=== PATIENT | male | born 1955 | race Hispanic/Latino ===

== ENCOUNTER 2019-03-11 07:35 | Inpatient (IN) | payer MEDICARE ==
[~2019-03-11] VITALS: Ht 160 cm; Wt 59.7 kg
[2019-03-11 08:06] LABS: CARBON DIOXIDE 21 mmol/L (21-32); CHLORIDE 95 mmol/L (101-111); CREATININE 0.7 mg/dL (0.5-1.5); GLOMERULAR FILTR. RATE CALC 120 mL/min (>60); GLUCOSE,RANDOM 93 mg/dL (70-105); POTASSIUM 3.9 mmol/L (3.5-5.1); SODIUM SERUM 130 mmol/L (136-145); UREA NITROGEN, BLOOD 5 mg/dL (7-18)
[2019-03-11 08:10] LABS: INR 1.02 (0.85-1.15); PARTIAL THROMBOPLASTIN TIME 27.5 SEC (26.3-35.5); PROTHROMBIN TIME 10.7 SEC (9.6-11.6)
[2019-03-11 08:11] LABS: APPEARANCE,URINE Clear (CLEAR); BILIRUBIN,URINE Negative (NEGATIVE); COLOR,URINE Yellow (YELLOW); GLUCOSE, URINE (UA) Negative (NEGATIVE); KETONES,URINE Negative (NEGATIVE); LEUKOCYTE ESTERASE ,URINE Negative (NEGATIVE); NITRATE,URINE Negative (NEGATIVE); OCCULT BLOOD,URINE Negative (NEGATIVE); PROTEIN,URINE Negative (NEGATIVE); UROBILINOGEN,URINE 0.2 mg/dL (0.2-1.0)
[2019-03-11 08:17] LABS: ALANINE AMINOTRANSFERASE 22 U/L (12-78); ALBUMIN 4.2 g/dL (3.5-5.0); ASPARTATE AMINOTRANSFERASE 27 U/L (10-37); BILIRUBIN,TOTAL 0.4 mg/dL (0.2-1.0); CREATINE KINASE, TOTAL 113 U/L (21-232); MYOGLOBIN 32 ng/mL (10-92); TOTAL PROTEIN, SERUM 9.1 g/dL (6.0-8.3); TROPONIN I < 0.04 ng/mL (0.00-0.06)
[2019-03-11] MEDS ORDERED: AZITHROMYCIN 250 MG TABLET PO ONE (08:19)
[2019-03-11] MEDS ORDERED: CEFTRIAXONE SODIUM 1 GM ONE (08:19)
[2019-03-11] MEDS ORDERED: SODIUM CHLORIDE 0.9% 1000ML 2,000 ML IV ONE (08:20)
[2019-03-11 08:27] LABS: BASOPHILS % (AUTO) 0.6 % (0.0-5.0); EOSINOPHILS % (AUTO) 9.5 % (0.0-8.0); HEMATOCRIT 45.3 % (42-54); LYMPHOCYTES % (AUTO) 26.1 % (21.0-51.0); MEAN CORPUSCULAR HEMOGLOBIN 33.6 pg (27.0-33.0); MEAN CORPUSCULAR HGB CONC 34.6 g/dL (32.0-36.0); MEAN CORPUSCULAR VOLUME 97.1 fL (79-99); NEUTROPHILS % (AUTO) 56.8 % (40.0-77.0); NUCLEATED RED BLOOD CELLS 0.1 % (0.0-0.19); PLATELET COUNT (AUTO) 148 K/uL (130-400); RED BLOOD CELL COUNT(AUTO) 4.66 MIL/uL (4.50-6.20); WHITE BLOOD COUNT (AUTO) 7.5 K/uL (4.8-10.8)
[2019-03-11] MEDS ORDERED: METHYLPREDNISOLONE SOD SUCC 125MG/2ML VIAL ONE (09:07)
[2019-03-11] MEDS ORDERED: IPRATROPIUM/ALBUTEROL SULFATE 3 ML SOLUTION IH ONE (09:11)
[2019-03-11] MEDS ORDERED: FAMOTIDINE 20MG TAB 20 MG TAB ONE (10:21)
[2019-03-11] MEDS ORDERED: ENOXAPARIN SODIUM 40 MG/0.4 ML SYRINGE SQ ONE (10:22)
[2019-03-11] MEDS ORDERED: SODIUM CHLORIDE 0.9% 10 ML VIAL IVP PRN (15:30)
[2019-03-11] MEDS: PHARMACY COMMUNICATION MISC SCH ×2 (15:30→21:00)
[2019-03-11 16:00] VITALS: BP 158/97
[2019-03-11] MEDS ORDERED: CEFTRIAXONE SODIUM 1 GM IVP SCH (17:45)
[2019-03-11] MEDS: CEFTRIAXONE SODIUM 1 GM IVP SCH (17:45)
[2019-03-11] MEDS ORDERED: AEC81 PO (17:56)
[2019-03-11] MEDS ORDERED: LOSA50TA64 PO (17:56)
[2019-03-11] MEDS ORDERED: ATOR10 PO (17:59)
[2019-03-11] MEDS ORDERED: ERGO50CA PO (17:59)
[2019-03-11] MEDS ORDERED: LACT10SO PO (17:59)
[2019-03-11] MEDS ORDERED: IPRATROPIUM/ALBUTEROL SULFATE 3 ML SOLUTION IH SCH (18:00)
[2019-03-11] MEDS: IPRATROPIUM/ALBUTEROL SULFATE 3 ML SOLUTION IH SCH ×2 (18:40→23:28)
[2019-03-11] MEDS ORDERED: SODIUM CHLORIDE 3% FOR INHALATION 4 ML/AMP VIAL.NEB IH ONE (19:04)
[2019-03-11 20:08] VITALS: BP 142/73
[2019-03-11] MEDS: FAMOTIDINE 20MG TAB 20 MG TAB PO SCH (20:51)
[2019-03-11] MEDS ORDERED: FAMOTIDINE 20MG TAB 20 MG TAB PO SCH (21:00)
[2019-03-12 00:06] VITALS: BP 146/77
[2019-03-12] MEDS ORDERED: METHYLPREDNISOLONE SOD SUCC 125MG/2ML VIAL IVP SCH (02:00)
[2019-03-12 04:06] VITALS: BP 150/75
[2019-03-12 05:25] LABS: HEMATOCRIT 41.3 % (42-54); MEAN CORPUSCULAR HEMOGLOBIN 33.2 pg (27.0-33.0); MEAN CORPUSCULAR HGB CONC 34.5 g/dL (32.0-36.0); MEAN CORPUSCULAR VOLUME 96.3 fL (79-99); NUCLEATED RED BLOOD CELLS 0.1 % (0.0-0.19); PLATELET COUNT (AUTO) 176 K/uL (130-400); RED BLOOD CELL COUNT(AUTO) 4.29 MIL/uL (4.50-6.20); RED CELL DISTRIBUTION WIDTH 12.5 % (11.0-15.5); WHITE BLOOD COUNT (AUTO) 4.9 K/uL (4.8-10.8)
[2019-03-12 05:30] LABS: LYMPHOCYTES % (MANUAL) 16 % (22-44); MAN.DIFF COMMENT-IMPRESSION MANUAL DIFFERENTIAL; MONOCYTES % (MANUAL) 4 % (2-9); PLATELET MORPHOLOGY COMMENT ADEQUATE; SEGMENTED NEUTROPHILS % 80 % (40-70)
[2019-03-12 05:38] LABS: CREATININE 0.9 mg/dL (0.5-1.5); POTASSIUM 3.9 mmol/L (3.5-5.1)
[2019-03-12] MEDS: IPRATROPIUM/ALBUTEROL SULFATE 3 ML SOLUTION IH SCH ×5 (06:45→21:55)
[2019-03-12] MEDS ORDERED: LACTULOSE 20 GM/30 ML UDCUP PO PRN (07:45)
[2019-03-12 08:00] VITALS: BP 145/83
[2019-03-12] MEDS: CEFTRIAXONE SODIUM 1 GM IVP SCH (08:35)
[2019-03-12] MEDS: METHYLPREDNISOLONE SOD SUCC 40MG/ML 1ML IVP SCH ×3 (08:35→18:14)
[2019-03-12] MEDS: AZITHROMYCIN 500MG+NS 250ML 250 ML IV SCH (08:35)
[2019-03-12] MEDS: FAMOTIDINE 20MG TAB 20 MG TAB PO SCH ×2 (08:36→20:11)
[2019-03-12] MEDS: LOSARTAN 50 MG TABLET PO SCH (08:36)
[2019-03-12] MEDS: ENOXAPARIN SODIUM 40 MG/0.4 ML SYRINGE SQ SCH (08:36)
[2019-03-12] MEDS: ASPIRIN 81 MG EC TAB PO SCH (08:36)
[2019-03-12] MEDS ORDERED: ENOXAPARIN SODIUM 40 MG/0.4 ML SYRINGE SQ SCH (09:00)
[2019-03-12] MEDS ORDERED: ERGOCALCIFEROL (VITAMIN D2) 50,000 UNIT CAPSULE PO SCH (09:00)
[2019-03-12] MEDS: PHARMACY COMMUNICATION MISC SCH ×2 (09:00→14:00)
[2019-03-12] MEDS ORDERED: AZITHROMYCIN 250 MG TABLET PO SCH ×2 (09:00)
[2019-03-12 12:00] VITALS: BP 129/69
--- NOTE | 2019-03-12 13:51 | NUR ---
cm note met with patient and states resides at home with spouse, ambulates per self, but does use cane as needed. has a nebulizer. pt also has a walker but not using at present. provider assists 4hrs daily for adls. dc plan is back home at time of dc. Addendum: 03/12/19 at 1355 by ELLY BLAKE CM Amended: Links added.
[2019-03-12] MEDS ORDERED: LORAZEPAM 2 MG/ML 1 ML VIAL IVP PRN (15:00)
[2019-03-12 16:00] VITALS: BP 126/65
[2019-03-12] MEDS: ATORVASTATIN CALCIUM 10 MG TABLET PO SCH (20:11)
[2019-03-12 20:28] VITALS: BP 121/67
[2019-03-13] VITALS (7 sets, daily range): BP systolic 133–160; BP diastolic 68–86
[2019-03-13] MEDS: IPRATROPIUM/ALBUTEROL SULFATE 3 ML SOLUTION IH SCH ×6 (01:11→22:01)
[2019-03-13] MEDS: METHYLPREDNISOLONE SOD SUCC 40MG/ML 1ML IVP SCH ×4 (02:53→22:04)
[2019-03-13 05:05] LABS: BASOPHILS % (AUTO) 0.1 % (0.0-5.0); EOSINOPHILS % (AUTO) 0.1 % (0.0-8.0); HEMATOCRIT 39.5 % (42-54); LYMPHOCYTES % (AUTO) 7.4 % (21.0-51.0); MEAN CORPUSCULAR HEMOGLOBIN 33.6 pg (27.0-33.0); MEAN CORPUSCULAR HGB CONC 34.7 g/dL (32.0-36.0); MONOCYTES % (AUTO) 4.5 % (3.0-13.0); NEUTROPHILS % (AUTO) 87.9 % (40.0-77.0); PLATELET COUNT (AUTO) 166 K/uL (130-400); RED BLOOD CELL COUNT(AUTO) 4.08 MIL/uL (4.50-6.20); RED CELL DISTRIBUTION WIDTH 12.9 % (11.0-15.5); WHITE BLOOD COUNT (AUTO) 9.3 K/uL (4.8-10.8)
[2019-03-13 05:18] LABS: CREATININE 0.8 mg/dL (0.5-1.5); POTASSIUM 3.8 mmol/L (3.5-5.1)
[2019-03-13] MEDS: ENOXAPARIN SODIUM 40 MG/0.4 ML SYRINGE SQ SCH (09:00)
[2019-03-13] MEDS: FAMOTIDINE 20MG TAB 20 MG TAB PO SCH ×2 (09:55→21:19)
[2019-03-13] MEDS: AZITHROMYCIN 500MG+NS 250ML 250 ML IV SCH (09:55)
[2019-03-13] MEDS: LOSARTAN 50 MG TABLET PO SCH (09:56)
[2019-03-13] MEDS: ASPIRIN 81 MG EC TAB PO SCH (09:56)
[2019-03-13] MEDS: CEFTRIAXONE SODIUM 1 GM IVP SCH (09:57)
[2019-03-13] MEDS ORDERED: CHLORDIAZEPOXIDE HCL 25 MG CAP PO SCH (21:00)
[2019-03-13] MEDS: ATORVASTATIN CALCIUM 10 MG TABLET PO SCH (21:20)
--- NOTE | 2019-03-13 21:20 | NUR ---
MEDS SHIFT ASSESSMENT DONE, PLEASE REFER TO CHART. DUE MEDS ADMINISTERED, TOLERATED WELL. KEPT RESTED AND COMFORTABLE IN BED. CALL LIGHT WITHIN REACH. CALLED PHARMACY, SPOKE WITH YURY, ASKED ABOUT AVAILABLE LIBRIUM DOSES MD ORDERED LESS THAT WHAT IS AVAILABLE BUT IN CAPSULE. RASHEEDA EXPANSION ENVELOPE MAKER HAND LEAN MANUFACTURING LEADER FOR HOSPITALIST, PAGED VIA ANSWERING SERVICE TO CLARIFY LIBRIUM DOSE. RASHEEDA CALLED BACK AND REFERRED MED. EXPANSION ENVELOPE MAKER HAND STATED WILL ADD MORE ORDERS BUT WILL NEED TO KEEP MD ORDER IS. CALLED PHARMACIST AGAIN AND NEW ORDER PLACED FOR PHARMACY TO ENTER. PLEASE REFER TO CPOE FOR NEW MED ORDERS. Addendum: 03/14/19 at 0040 by LASHELL MYERS RN RN Amended: Links added.
--- NOTE | 2019-03-13 21:33 | NUR ---
MEDS PT ALREADY ATE A SANDWICH AFTER HE CAME BACK FROM CT SCAN. DUE MEDS ADMINISTERED, TOLERATED WELL. KEPT RESTED AND COMFORTABLE IN BED. CALL LIGHT WITHIN REACH. WILL MONITOR PT. Addendum: 03/14/19 at 0236 by LASHELL MYERS RN RN ERROR ENTRY
[2019-03-13] MEDS ORDERED: CHLORDIAZEPOXIDE HCL 25 MG CAP PO PRN ×2 (21:45)
[2019-03-13] MEDS ORDERED: PHARMACY COMMUNICATION MISC PRN (21:45)
[2019-03-13] MEDS ORDERED: LORAZEPAM 2 MG/ML 1 ML VIAL IVP PRN ×2 (21:45)
[2019-03-13] MEDS ORDERED: PHARMACY COMMUNICATION MISC SCH (22:00)
[2019-03-13] MEDS: CHLORDIAZEPOXIDE HCL 5 MG CAPSULE PO SCH (22:04)
--- NOTE | 2019-03-13 22:05 | NUR ---
MEDS PT ABLE TO AMBULATE TO THE BATHROOM AND BACK TO BED BY HIMSELF THOUGH DRAGGING HIS RT LEG. NEW MED ORDERED FOR LIBRIUM ADMINISTERED. RT WAS IN TO DO BREATHING TREATMENT AND REMINDED ABOUT WEANING PT OFF O2.
[2019-03-14] MEDS: IPRATROPIUM/ALBUTEROL SULFATE 3 ML SOLUTION IH SCH ×6 (01:54→21:55)
--- NOTE | 2019-03-14 02:00 | NUR ---
WEANED RT INFORMS DRIVING INSTRUCTOR THAT PT WAS ALREADY WEANED OFF FROM O2. O2 SAT =97% ON RA. NO DISTRESS NOTED AT THIS TIME.
[2019-03-14] MEDS: METHYLPREDNISOLONE SOD SUCC 40MG/ML 1ML IVP SCH ×4 (03:02→20:18)
[2019-03-14 03:42] VITALS: BP 143/79
[2019-03-14 05:54] LABS: BASOPHILS % (AUTO) 0.1 % (0.0-5.0); HEMATOCRIT 41.8 % (42-54); LYMPHOCYTES % (AUTO) 9.2 % (21.0-51.0); MEAN CORPUSCULAR HGB CONC 33.9 g/dL (32.0-36.0); MEAN CORPUSCULAR VOLUME 97.4 fL (79-99); MONOCYTES % (AUTO) 3.2 % (3.0-13.0); NEUTROPHILS % (AUTO) 87.5 % (40.0-77.0); PLATELET COUNT (AUTO) 184 K/uL (130-400); RED CELL DISTRIBUTION WIDTH 12.9 % (11.0-15.5); WHITE BLOOD COUNT (AUTO) 9.7 K/uL (4.8-10.8)
[2019-03-14 06:06] LABS: CREATININE 0.9 mg/dL (0.5-1.5); MAGNESIUM 2.3 mg/dL (1.80-2.40); POTASSIUM 3.8 mmol/L (3.5-5.1)
[2019-03-14 08:00] VITALS: BP 141/79
[2019-03-14] MEDS: CHLORDIAZEPOXIDE HCL 5 MG CAPSULE PO SCH ×3 (09:53→20:18)
[2019-03-14] MEDS: LOSARTAN 50 MG TABLET PO SCH (09:54)
[2019-03-14] MEDS: AZITHROMYCIN 500MG+NS 250ML 250 ML IV SCH (09:54)
[2019-03-14] MEDS: CEFTRIAXONE SODIUM 1 GM IVP SCH (09:54)
[2019-03-14] MEDS: FAMOTIDINE 20MG TAB 20 MG TAB PO SCH ×2 (09:54→20:18)
[2019-03-14] MEDS: ASPIRIN 81 MG EC TAB PO SCH (09:54)
[2019-03-14] MEDS: ENOXAPARIN SODIUM 40 MG/0.4 ML SYRINGE SQ SCH (09:54)
[2019-03-14 10:46] VITALS: BP 134/68
[2019-03-14 15:58] VITALS: BP 136/66
[2019-03-14 19:44] VITALS: BP 143/80
[2019-03-14] MEDS: ATORVASTATIN CALCIUM 10 MG TABLET PO SCH (20:18)
--- NOTE | 2019-03-14 20:18 | NUR ---
MEDS SHIFT ASSESSMENT DONE, PLEASE REFER TO CHART. DUE MEDS ADMINISTERED, TOLERATED WELL. PT'S PIV NOTED TO BE LEAKING, DISCONTINUED SITE WITH CATHETER INTACT. KEPT RESTED AND COMFORTABLE. CALL LIGHT WITHIN REACH. Addendum: 03/14/19 at 2338 by LASHELL MYERS RN RN Amended: Links added.
--- NOTE | 2019-03-14 21:45 | NUR ---
PIV PCP INFORMS MACHINE SHOP SPECIALIST THAT PT REFUSED TO SHOWER AND CLAIMS THAT HE IS COLD. PIV RE-INSERTED, G20 TO RT FOREARM.PT TOLERATED RE-INSERTION WELL. MACHINE SHOP SPECIALIST OFFERED PT A SHOWER TONIGHT OR IN THE AM BUT PT STILL REFUSED. Addendum: 03/14/19 at 2348 by LASHELL MYERS RN RN Amended: Links added.
[2019-03-14 23:40] VITALS: BP 144/88
[2019-03-15] MEDS: IPRATROPIUM/ALBUTEROL SULFATE 3 ML SOLUTION IH SCH ×4 (01:32→14:40)
[2019-03-15] MEDS: METHYLPREDNISOLONE SOD SUCC 40MG/ML 1ML IVP SCH ×2 (01:58→09:04)
--- NOTE | 2019-03-15 01:58 | NUR ---
MEDS PT FAIRLY ASLEEP WITH RESPIRATIONS EVEN AND UNLABORED. NO DISTRESS NOTED. DUE MEDS ADMINISTERED, TOLERATED WELL. KEPT RESTED AND UNDISTURBED. WILL MONITOR PT.
[2019-03-15 04:00] VITALS: BP 148/84
--- NOTE | 2019-03-15 06:00 | NUR ---
ROUNDS PT IS ASKING WHEN HIS DISCHARGE PAPERS WILL BE GIVEN HIM. EXPLAINED THAT MD NEED TO MAKE ROUNDS AND GIVE FINAL ORDERS FOR D/C. PT VERBALIZES UNDERSTANDING.
[2019-03-15 08:00] VITALS: BP 178/95
[2019-03-15] MEDS: CHLORDIAZEPOXIDE HCL 5 MG CAPSULE PO SCH (09:00)
[2019-03-15] MEDS: AZITHROMYCIN 500MG+NS 250ML 250 ML IV SCH (09:03)
[2019-03-15] MEDS: FAMOTIDINE 20MG TAB 20 MG TAB PO SCH (09:04)
[2019-03-15] MEDS: CEFTRIAXONE SODIUM 1 GM IVP SCH (09:04)
[2019-03-15] MEDS: LOSARTAN 50 MG TABLET PO SCH (09:04)
[2019-03-15] MEDS: ASPIRIN 81 MG EC TAB PO SCH (09:04)
[2019-03-15] MEDS: ENOXAPARIN SODIUM 40 MG/0.4 ML SYRINGE SQ SCH (09:04)
[2019-03-15 11:51] VITALS: BP 152/90
[2019-03-15] MEDS ORDERED: PRED10TA3 PO (13:42)
[2019-03-15] MEDS ORDERED: IPRA3AMP24 IH (13:42)
[2019-03-15] MEDS ORDERED: AMOX-429 PO (13:42)
== END 2019-03-15 15:23 | disposition home or self-care (01) | DRG 871 ==
LOC: EDH 07:35 → EDHIP 09:44 → 4CH 16:28
PROVIDERS: ADMIT Family Medicine; ATTEND Family Medicine
PROC: 5A09357 Assistance with Respiratory Ventilation, Less than 24 Consecutive Hours, Continuous Positive Airway Pressure (ICD-10-PCS; principal; 2019-03-11)
PROC: 5A09357 Assistance with Respiratory Ventilation, Less than 24 Consecutive Hours, Continuous Positive Airway Pressure (ICD-10-PCS; 2019-03-12)
PROC: 5A09357 Assistance with Respiratory Ventilation, Less than 24 Consecutive Hours, Continuous Positive Airway Pressure (ICD-10-PCS; 2019-03-13)
PROC: 5A09357 Assistance with Respiratory Ventilation, Less than 24 Consecutive Hours, Continuous Positive Airway Pressure (ICD-10-PCS; 2019-03-14)
DX: A41.9 Sepsis, unspecified organism (principal); J18.9 Pneumonia, unspecified organism; J44.0 Chronic obstructive pulmonary disease with (acute) lower respiratory infection; E87.2 Acidosis; J44.1 Chronic obstructive pulmonary disease with (acute) exacerbation; E87.1 Hypo-osmolality and hyponatremia; I69.351 Hemiplegia and hemiparesis following cerebral infarction affecting right dominant side; I10 Essential (primary) hypertension; E78.5 Hyperlipidemia, unspecified; F10.20 Alcohol dependence, uncomplicated; F17.200 Nicotine dependence, unspecified, uncomplicated; Z98.49 Cataract extraction status, unspecified eye; Z71.6 Tobacco abuse counseling
CPT/HCPCS: 36415; 71045; 71250; 80048; 80053; 81003; 82550; 83605; 83735; 83874; 83880; 84145; 84484; 85025; 85610; 85730; 87040; 87071; 87088; 87205; 87449; 87804; 93005; 94640; 94660; 94664; 94760; G0378; J0456; J0696; J1650; J2920; J2930; J7030

== ENCOUNTER → 2019-10-19 | Outpatient (CLI) | payer MEDICARE | END | disposition home or self-care (01) | LOC: RAH 11:56 | PROVIDERS: ATTEND Family Medicine | DX: Z01.818 Encounter for other preprocedural examination (principal) ==

== ENCOUNTER 2023-07-22 08:35 | Day surgery (SDC) | payer OTHER, MEDICARE ==
[~2023-07-22] VITALS: Ht 160 cm; Wt 61.2 kg
[2023-07-22] VITALS (11 sets, daily range): BP systolic 98–108; BP diastolic 44–59; PULSE 64–92; RESP 15–16
[~2023-07-22 08:35] MED LIST: ATOR-2 PO; BACL10TA PO; CLOP75TA32 PO; EZET10TA48 PO; IRON1CAP30 PO; LISI10TA24 PO; METO50TA18 PO; OMEP40CA21 PO
[2023-07-22] MEDS: 0.9%NACL 1000ML 1,000 ML IV ONE (10:11)
[2023-07-22] MEDS ORDERED: PROPOFOL 10 MG/ML 20ML VIAL IV ONE (11:27)
== END 2023-07-22 13:15 | disposition home or self-care (01) ==
LOC: DAH 08:35 → ENDO 08:35
PROVIDERS: ATTEND Internal Medicine Gastroenterology
DX: Z12.11 Encounter for screening for malignant neoplasm of colon (principal); D12.3 Benign neoplasm of transverse colon; D12.5 Benign neoplasm of sigmoid colon; K29.50 Unspecified chronic gastritis without bleeding; K31.A0 Gastric intestinal metaplasia, unspecified; K31.89 Other diseases of stomach and duodenum; R13.10 Dysphagia, unspecified; R14.0 Abdominal distension (gaseous); D64.9 Anemia, unspecified; K76.9 Liver disease, unspecified; E72.20 Disorder of urea cycle metabolism, unspecified; K82.4 Cholesterolosis of gallbladder; F10.20 Alcohol dependence, uncomplicated; I10 Essential (primary) hypertension; E11.9 Type 2 diabetes mellitus without complications; E78.5 Hyperlipidemia, unspecified; K21.9 Gastro-esophageal reflux disease without esophagitis; K44.9 Diaphragmatic hernia without obstruction or gangrene; K22.2 Esophageal obstruction; Z79.01 Long term (current) use of anticoagulants; Z72.89 Other problems related to lifestyle; Z79.51 Long term (current) use of inhaled steroids; Z79.899 Other long term (current) drug therapy; Z87.891 Personal history of nicotine dependence; Z98.49 Cataract extraction status, unspecified eye
CPT/HCPCS: 43239; 43248; 45385; J7030 ×2; J2704; A4620; A4215; A4223; A7002; A4222; A4221; A4663; A4606; J3490

== ENCOUNTER → 2023-09-02 | Outpatient (CLI) | payer OTHER, MEDICARE | END | disposition home or self-care (01) | LOC: RAH 12:52 | PROVIDERS: ATTEND Internal Medicine | DX: R13.12 Dysphagia, oropharyngeal phase (principal); R63.30 Feeding difficulties, unspecified | CPT/HCPCS: 74230; 92611 ==